=== PATIENT | male | born 1975 | race Caucasian/White ===

== ENCOUNTER 2022-07-15 10:50 | Emergency (ER) | payer MEDICAID, SELFPAY ==
[2022-07-15 10:55] VITALS: BP 121/84; PULSE 78; RESP 18; TEMP 36.7; O2SAT 98; BMI 31.4
--- NOTE | 2022-07-15 11:10 | ED_ITS ---
HPI - Weakness General: Chief complaint: Weakness Stated complaint: weak,hands/feet numb,headache Time Seen by Provider: 07/15/22 11:08 History of Present Illness: Mr. Moore is a 46-year-old gentleman with history of asthma presenting to the emergency department due to generalized illness. He reports being at his baseline health past few days and about 6 AM he felt weak and shaky. He felt like this may be due to blood sugar getting low and had some candy which mildly improved symptoms but he feels generally weak still. No focality or worsening of 1 side of his body. Bilateral hand and feet tingling. Does endorse mild headache. Intensity symptoms is mild to moderate. Course has persisted. No other specific changes in health, exacerbating, or alleviating factors identified. Onset (ago): hour(s) Duration: constant Location: generalized Migration: none Severity: moderate Quality: tingling Relieving factors: none Exacerbating factors: none Associated symptoms: Reports other Review of Systems General: Reports: 10 or more systems reviewed and unremarkable except in HPI and below PFSH ED PFSH: Medical History Asthma Surgical History History of hernia repair Physical Exam Const: COMMON NORMALS: alert GENERAL APPEARANCE: cooperative and well developed HENMT: COMMON NORMALS: normocephalic and atraumatic HEAD & SCALP: normocephalic and atraumatic Eye: COMMON NORMALS: conjunctivae normal CONJUNCTIVA: Yes conjunctivae normal SCLERA: sclerae normal Neck/C-Spine: COMMON NORMALS: supple GENERAL: Yes trachea midline Resp: COMMON NORMALS: clear to auscultation bilaterally EFFORT & INSPECTION: Yes able to speak in complete sentences AUSCULTATION: clear to auscultation bilaterally Cardio: COMMON NORMALS: regular rate and regular rhythm RATE: regular rate RHYTHM: regular rhythm GI: COMMON NORMALS: Soft to palpation PALPATION: Yes Soft to palpation and No Tenderness to palpation present (GI) Extremity: GENERAL: Yes normal exam except as noted and No edema Neuro: COMMON NORMALS: moves all extremities SENSORIUM/ORIENTATION: Yes alert and No Orientation impaired Psych: COMMON NORMALS: mental status grossly normal and Normal thought process present THOUGHT PROCESS: Normal thought process present Course Vital Signs: Vital signs: Vital Signs Temperature 98.1 F 07/15/22 10:55 Pulse Rate 85 07/15/22 13:41 Respiratory Rate 16 07/15/22 13:41 Blood Pressure 115/83 07/15/22 13:41 Pulse Oximetry 96 07/15/22 13:41 MDM - Weakness Medical Decision Making 46-year-old gentleman presenting with episode of profound weakness that is mildly improved but still has generalized weakness. He has a nonfocal neurologic exam and is nontoxic in appearance. Exam otherwise as above. EKG notable for sinus rhythm, normal intervals and axis, no STEMI. Labs with no leukocytosis, normal hemoglobin and platelet count. Metabolic panel without derangement, normal glucose level. No evidence of urinary tract infection, perhaps mild dehydration present. Negative rapid viral studies. Chest x-ray with no lobar consolidation or pneumothorax. Patient improved with fluid bolus. Most likely etiology of patient's symptoms is unclear, dehydration and generalized weakness which may be viral in nature. The results of ED evaluation were discussed with the patient including p rescriptions and/or symptomatic cares (if applicable) including appropriate and responsible use, followup plan, and return precautions. The patient verbalized understanding and felt safe for discharge. Medical Records I reviewed the patient's medical records. Lab Data I reviewed the patient's lab results. 07/15/22 11:20 07/15/22 11:20 Radiology Impressions Chest X-Ray 07/15/22 11:14 IMPRESSION: Chronic appearing interstitial thickening. May be related to respiratory bronchiolitis. No pneumonia. Laboratory Results WBC 8.5 10^3/uL (4.0-10.0) 07/15/22 11:20 RBC 5.09 10^6/uL (4.1-5.3) 07/15/22 11:20 Hgb 15.8 g/dL (11.7-16.6) 07/15/22 11:20 Hct 47.9 % (42.0-52.0) 07/15/22 11:20 MCV 94.1 fl (80-94) H 07/15/22 11:20 MCH 31.0 pg (28.0-34.0) 07/15/22 11:20 MCHC 33.0 g/dL (30.0-36.0) 07/15/22 11:20 RDW 12.5 % (12.1-15.1) 07/15/22 11:20 Plt Count 198 10^3/cmm (130-400) 07/15/22 11:20 MPV 11.0 fL (7.4-10.4) H 07/15/22 11:20 Neut % (Auto) 63.6 % 07/15/22 11:20 Lymph % (Auto) 30.1 % 07/15/22 11:20 Mcculloch % (Auto) 4.4 % 07/15/22 11:20 Eos % (Auto) 1.2 % 07/15/22 11:20 Baso % (Auto) 0.5 % 07/15/22 11:20 Neut # (Auto) 5.38 10^3/uL (1.8-7.7) 07/15/22 11:20 Lymph # (Auto) 2.5 10^3/uL (0.8-4.8) 07/15/22 11:20 Mcculloch # (Auto) 0.4 10^3/uL (0.2-0.9) 07/15/22 11:20 Eos # (Auto) 0.1 10^3/uL (0.0-0.8) 07/15/22 11:20 Baso # (Auto) 0.0 10^3/uL (0.0-0.1) 07/15/22 11:20 Nucleated RBC % (auto) 0 % 07/15/22 11:20 Nucleated RBCs # 0.0 /100WBC 07/15/22 11:20 Sodium 139 mmol/L (136-145) 07/15/22 11:20 Potassium 4.1 mmol/L (3.5-5.1) 07/15/22 11:20 Chloride 102 mmol/L (98-107) 07/15/22 11:20 Carbon Dioxide 25 mmol/L (22-29) 07/15/22 11:20 Anion Gap 16.1 (5-19) 07/15/22 11:20 BUN 17 mg/dL (6-20) 07/15/22 11:20 Creatinine 1.0 mg/dL (0.7-1.2) 07/15/22 11:20 GFR Calculation 80.1 mL/min (90-130) L 07/15/22 11:20 Glucose 88 mg/dL (65-115) 07/15/22 11:20 Calculated Osmolality 289 mOsm/kg (285-295) 07/15/22 11:20 Calcium 9.0 mg/dL (8.5-10.5) 07/15/22 11:20 Total Bilirubin 0.6 mg/dL (0.15-1.2) 07/15/22 11:20 AST 17 U/L (0-40) 07/15/22 11:20 ALT 17 U/L (0-41) 07/15/22 11:20 Alkaline Phosphatase 81 U/L (40-130) 07/15/22 11:20 Total Protein 7.3 g/dL (6.6-8.7) 07/15/22 11:20 Albumin 4.6 g/dL (3.5-5.2) 07/15/22 11:20 Globulin 2.7 g/dL (1.3-4.6) 07/15/22 11:20 TSH 1.04 uIU/mL (0.27-4.20) 07/15/22 11:20 Urine Color Yellow (Yellow) 07/15/22 12:44 Urine Appearance Clear (CLEAR) 07/15/22 12:44 Urine pH 5 (5-7) 07/15/22 12:44 Ur Specific Morrow 1.020 (1.005-1.030) 07/15/22 12:44 Urine Protein Neg (Negative) 07/15/22 12:44 Urine Glucose (UA) Norm (Normal) 07/15/22 12:44 Urine Ketones 1+ (Negative) H 07/15/22 12:44 Urine Blood Neg (Negative) 07/15/22 12:44 Urine Nitrate Negative (Negative) 07/15/22 12:44 Urine Bilirubin Neg (Negative) 07/15/22 12:44 Urine Urobilinogen Norm mg/dL (Negative) 07/15/22 12:44 Ur Leukocyte Esterase Negative (Negative) 07/15/22 12:44 Influenza Type A Ag negative (Negative) 07/15/22 11:33 Influenza Type B Ag negative (Negative) 07/15/22 11:33 SARS-CoV-2 Ag (Rapid) negative (Negative) 07/15/22 11:33 Discharge Plan Discharge Patient Disposition: Home Clinical Impression: Malaise and fatigue, Paresthesia Condition: Stable Prescriptions: New albuterol sulfate 90 mcg/actuation HFA aerosol inhaler 2 inh inhalation Q4H PRN (Reason: shortness of breath or wheezing) Qty: 8.5 2RF No Action Fish Oil Concentrate 1,000 mg Capsule 1,000 mg PO DAILY Aspir-Low 81 mg Tablet,Delayed Release (Dr/Ec) 81 mg PO DAILY melodie extract 250 mg Capsule 250 mg PO DAILY vitamin B complex Tablet 1 tab PO DAILY Excedrin Migraine 250-250-65 mg Tablet 2 tab PO BID PRN (Reason: Migraine Headache) turmeric 400 mg Capsule 400 mg PO DAILY alpha lipoic acid 600 mg Tablet 600 mg PO DAILY Lions Celestino Capsules 1 cap PO DAILY Discharge Orders: Discharge ED (Routine); Ordered 07/15/22 Ordered By: Preet Krause Discharge Diet: Usual diet Discharge Activity: Increase activity as tolerated Patient Instructions: Paresthesia (ED), Viral Syndrome (ED), Weakness (ED) Activity Restrictions/Additional Instructions: Thank you for visiting the emergency department. You were seen and evaluated for generalized illness. The exact cause of your symptoms is unclear though may be viral in nature. Given ED evaluation I do not believe that you need hospitalization at this time. Please ensure that you are staying hydrated and resting. You may use [id number] medications such as acetaminophen and ibuprofen for pain however please do not exceed the daily recommended dosage as listed on the packaging and please keep in mind that many namebrand medications contain the same active ingredients. Please avoid these medications if previously instructed to do so by another physician due to other underlying medical condition. I will message case management for follow-up with a primary care provider. Return to the emergency department for uncontrolled symptoms, any new neurologic symptoms, or anything else that you are concerned about a feel needs emergency department evaluation. Stand Alone Forms: Work/School Release Coding Level of Care Code ED Mirror Installer for Nasima Fwnile Exam Comprehensive
--- NOTE | 2022-07-15 11:14 | XR_ITS ---
WS: [id number] PORTABLE CHEST HISTORY: presyncope COMPARISON: None available. Hyperexpanded lungs with mild coarse echotexture. No consolidations. No mass or nodule. No pleural ef fusion or pneumothorax. Cardiac size: Normal. Mediastinum/Aorta: Normal mediastinum. No osseous abnormality seen. XR/XR chest 1V portable [id number] IMPRESSION: Chronic appearing interstitial thickening. May be related to respiratory bronch iolitis. No pneumonia.
--- NOTE | 2022-07-15 11:27 | ECG_ITS ---
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 Measurements Intervals [place] Rate: 71 P: 71 [place]: 162 QRS: -4 QRSD: 92 T: 59 QT: 377 QTc: 411 Interpretive Statements SINUS RHYTHM No previous ECG available for comparison Electronically Signed On 07-15-2022 14:38:01 PEN MAKER by Adolfo Marinelli M.D. [id number]
[2022-07-15] MEDS: sodium chloride 0.9% 1,000 ML 999 ML IV (11:33)
[2022-07-15 11:34] LABS: Basophils % 0.5 %; Eosinophils # 0.1 10^3/uL (0.0-0.8); Eosinophils % 1.2 %; Hematocrit 47.9 % (42.0-52.0); Hemoglobin 15.8 g/dL (11.7-16.6); Lymphocytes # 2.5 10^3/uL (0.8-4.8); Lymphocytes % 30.1 %; Mean Corpuscular Volume 94.1 fl (80-94); Monocytes # 0.4 10^3/uL (0.2-0.9); Monocytes % 4.4 %; Neutrophils # 5.38 10^3/uL (1.8-7.7); Neutrophils % 63.6 %; Nucleated Red Blood Cells % 0 %; Platelet Count 198 10^3/cmm (130-400); Red Blood Count 5.09 10^6/uL (4.1-5.3); Red Cell Distribution Width 12.5 % (12.1-15.1); White Blood Count 8.5 10^3/uL (4.0-10.0)
[2022-07-15 12:03] LABS: Alanine Aminotransferase 17 U/L (0-41); Albumin Level 4.6 g/dL (3.5-5.2); Alkaline Phosphatase 81 U/L (40-130); Anion Gap 16.1 (5-19); Aspartate Amino Transferase 17 U/L (0-40); Blood Urea Nitrogen 17 mg/dL (6-20); Carbon Dioxide 25 mmol/L (22-29); Chloride 102 mmol/L (98-107); Globulin 2.7 g/dL (1.3-4.6); Glomerular Filtration Rate 80.1 mL/min (90-130); Glucose 88 mg/dL (65-115); Osmolality Calculated 289 mOsm/kg (285-295); Potassium 4.1 mmol/L (3.5-5.1); Sodium 139 mmol/L (136-145); Thyroid Stimulating Hormone 1.04 uIU/mL (0.27-4.20); Total Bilirubin 0.6 mg/dL (0.15-1.2); Total Protein 7.3 g/dL (6.6-8.7)
[2022-07-15 12:05] LABS: Influenza A by IFA negative (Negative); Influenza B by IFA negative (Negative)
[2022-07-15 12:06] LABS: SARS Covid-2 Antigen negative (Negative)
[2022-07-15 13:19] LABS: Add Urine Microscopic? NO; Charge for UA Resulting for Rev
[2022-07-15 13:27] LABS: Glucose Urine UA Norm (Normal); Protein Urine Neg (Negative); Urine Appearance Clear (CLEAR); Urine Color Yellow (Yellow); pH Urine 5 (5-7)
[2022-07-15 13:28] LABS: Bilirubin Urine Neg (Negative); Blood Urine Neg (Negative); Ketones Urine 1+ (Negative); Leukocyte Esterase Urine Negative (Negative); Nitrate Urine Negative (Negative); Urobilinogen Urine Norm (Negative)
[2022-07-15 13:41] VITALS: BP 115/83; PULSE 85; RESP 16; O2SAT 96
== END 2022-07-15 13:42 | disposition home or self-care (01) ==
PROVIDERS: Emergency Provider Emergency Medicine
DX: R20.2 Paresthesia of skin (principal); R53.81 Other malaise; R53.83 Other fatigue; Z79.82 Long term (current) use of aspirin; Z20.822 Contact with and (suspected) exposure to COVID-19
CPT/HCPCS: 71045; 80053; 81003; 84443; 85025; 87426; 87804; 93005; 99285; J7030

== ENCOUNTER 2022-09-13 18:53 | Emergency (ER) | payer MEDICAID, SELFPAY ==
[2022-09-13] VITALS (7 sets, daily range): BP systolic 128–159; BP diastolic 76–104; PULSE 22–102; RESP 18–93; TEMP 36.4; O2SAT 94–97; BMI 30.8
--- NOTE | 2022-09-13 18:55 | CTR_ITS ---
PROCEDURE INFORMATION: Exam: CT Head Without Contrast Exam date and time: 09/13/2022 6:56 PM Age: 47 years old Clinical indication: Stroke-like symptoms; Altered mental status/memory loss and headache and speech disturbance; Additional info: Symptoms of acute stroke, follows commands but will not speak. TECHNIQUE: Imaging protocol: Computed tomography of the head without contrast. Radiation optimization: All CT scans at this facility use at least one of these dose optimization techniques: automated exposure control; mA and/or kV adjustment per patient size (includes targeted exams where dose is matched to clinical indication); or iterative reconstruction. Other technique: STROKE PROTOCOL was implemented. REPORTING DATA: Count of CT and Cardiac NM exams in prior 12 months: This patient has received 0 known CTs and 0 known cardiac nuclear medicine studies in the 12 months prior to the current study. COMPARISON: No relevant prior studies available. RADIATION DOSE METRICS: Total DLP (mGy-cm): 1086.58 FINDINGS: Brain: Normal. No hemorrhage. Unremarkable white matter. No mass effect. Cerebral ventricles: No ventriculomegaly. Paranasal sinuses: Visualized sinuses are unremarkable. No fluid levels. Mastoid air cells: Visualized mastoid air cells are well aerated. Bones/joints: Unremarkable. No acute fracture. Soft tissues: Unremarkable. CT/CT head thrombolytic [id number] IMPRESSION: No acute intracranial abnormality. ASSESSMENT: ASPECTS ([place] Stroke Program Early CT Score) is 10.
--- NOTE | 2022-09-13 18:59 | XRR_ITS ---
PROCEDURE INFORMATION: Exam: XR Chest Exam date and time: 09/13/2022 7:15 PM Age: 47 years old Clinical indication: Angina and other: Stroke alert; Additional info: Cp TECHNIQUE: Imaging protocol: Radiologic exam of the chest. Views: 1 view. COMPARISON: CR XR chest 1V portable [id number] 07/15/2022 11:31 AM FINDINGS: Lungs: Unremarkable. No consolidation. Pleural spaces: Unremarkable. No pleural effusion. No pneumothorax. Heart/Mediastinum: Unremarkable. No cardiomegaly. Bones/joints: Unremarkable. XR/XR chest 1V portable [id number] IMPRESSION: No acute findings.
--- NOTE | 2022-09-13 19:06 | ECG_ITS ---
[facility] Test Date: 2022-09-13 Pat Name: Silas Moore Department: Room: Gender: Male Manager Customs: : 1975 Requested By: Natividad Farias Order Number: [id number] Yadi MD: Kellen Chaudhary M.D. Measurements Intervals [place] Rate: 85 P: 71 [place]: 173 QRS: 13 QRSD: 88 T: 55 QT: 331 QTc: 395 Interpretive Statements SINUS RHYTHM POSSIBLE LEFT ATRIAL ENLARGEMENT [-0.1mV P-WAVE IN V1/V2] SEPTAL MYOCARDIAL INFARCTION , OF INDETERMINATE AGE [40+ ms Q WAVE IN V1/V2] Compared to ECG 07/15/2022 11:27:01 Myocardial infarct finding now present Electronically Signed On 09-13-2022 23:12:47 CDT by Kellen Chaudhary M.D. [id number]
[2022-09-13 19:09] LABS: Glucose Point of Care 109 mg/dL (70-110)
--- NOTE | 2022-09-13 19:14 | ED_ITS ---
HPI - Altered Mental Status General: Chief Complaint: Altered Mental Status Stated Complaint: STROKE ALERT Time Seen by Provider: 09/13/22 18:55 Source: patient and EMS Mode of arrival: EMS Limitations: no limitations History of Present Illness: 47-year-old male that at 1800 tonight got into a verbal altercation with his states he became angry EMS was called because he had an unresponsive event supposedly hit his head per EMS he points to his head complaining of headache and chest pain he does respond to questions but is unable to talk and EMS states he has not been able to talk since the event. He is able to write things down on a paper he is able to move all extremities has no facial droop Associated symptoms: Deny depression Review of Systems Const: Denies: fever(s), chills, body aches or change in appetite Eyes: Denies: blurry vision or eye discomfort ENMT: Denies: throat pain or dental pain Card: Reports: chest pain Resp: Denies: dyspnea GI: Denies: abdominal pain, nausea, vomiting or diarrhea : Denies: dysuria Musc: Denies: neck pain or back pain Skin/Breast: Denies: rash Neuro: Reports: headache(s) Psych: Denies: depression Josh/Lymph: Denies: easy bruising All/Imm: Denies: urticaria PFSH ED PFSH: Medical History Asthma Psychiatric care Surgical History History of hernia repair Social History (Updated 09/13/22 @ 19:16 by Natividad Farias MD) Substance/Drug Use: unknown Physical Exam Const: COMMON NORMALS: average body habitus and patient oriented x3 HENMT: COMMON NORMALS: normocephalic and atraumatic HEAD & SCALP: normocephalic and atraumatic Eye: COMMON NORMALS: Equal, round and reactive pupils present and EOMs intact bilaterally PUPIL: Yes Equal, round and reactive pupils present Neck/C-Spine: COMMON NORMALS: full ROM and no lymphadenopathy Chest: COMMONS NORMALS: normal inspection of the chest and normal palpation of entire chest wall Resp: COMMON NORMALS: normal respiratory effort and clear to auscultation bilaterally AUSCULTATION: clear to auscultation bilaterally Cardio: COMMON NORMALS: regular rate and regular rhythm RATE: regular rate RHYTHM: regular rhythm GI: COMMON NORMALS: Normal to inspection, nondistended, normoactive bowel sounds present, Soft to palpation and non-tender PALPATION: Yes Soft to palpation Back/Pelvis: COMMON NORMALS: thoracic and lumbar spine normal to inspection Extremity: COMMON NORMALS: normal to inspection Neuro: COMMON NORMALS: patient oriented x3 CRANIAL NERVES: Yes CN normal except as noted SPEECH: speech abnormal MOTOR EXAM: 5/5 motor strength present throughout Psych: COMMON NORMALS: cooperative Skin: COMMON NORMALS: no rashes or lesions noted GENERAL SKIN EXAM: no rashes or lesions noted Course Vital Signs: Vital signs: Vital Signs Temperature 97.5 F L 09/13/22 19:10 Pulse Rate 93 09/13/22 21:09 Respiratory Rate 18 09/13/22 21:09 Blood Pressure 159/97 09/13/22 21:09 Pulse Oximetry 97 09/13/22 21:09 Oxygen Delivery Me thod 09/13/22 20:00 MDM - Altered Mental Status Medical Decision Making Patient presents here with headache along with chest pain he also has not been able to speak patient was seen by neurologist Dr. Dempsey who did not recommend tPA but did recommend admission I did have patient admitted he o riginally agreed to admission but then he changed his mind and wanted to leave I did speak to them informed him that we still need to admit him since he was unable to talk and had a headache and likely need MRI in the morning he refused he has medical decision made capacity and signed out AMA. Lab Data 09/13/22 18:30 09/13/22 18:[address] 09/13/22 18:55 IMPRESSION: No acute intracranial abnormality. ASSESSMENT: ASPECTS ([place] Stroke Program Early CT Score) is 10. Chest X-Ray 09/13/22 18:59 IMPRESSION: No acute findings. Laboratory Results WBC 13.4 10^3/uL (4.0-10.0) H 09/13/22 18:30 RBC 5.26 10^6/uL (4.1-5.3) 09/13/22 18:30 Hgb 16.5 g/dL (11.7-16.6) 09/13/22 18:30 Hct 48.7 % (42.0-52.0) 09/13/22 18:30 MCV 92.6 fl (80-94) 09/13/22 18:30 MCH 31.4 pg (28.0-34.0) 09/13/22 18: MCHC 33.9 g/dL (30.0-36.0) 09/13/22 18:30 RDW 12.4 % (12.1-15.1) 09/13/22 18: Plt Count 210 10^3/cmm (130-400) 09/13/22 18:30 MPV 11.5 fL (7.4-10.4) H 09/13/22 18:30 Neut % (Auto) 67.4 % 09/13/22 18:30 Lymph % (Auto) 25.9 % 09/13/22 18:30 Bacon % (Auto) 5.3 % 09/13/22 18:30 Eos % (Auto) 0.7 % 09/13/22 18: Baso % (Auto) 0.4 % 09/13/22 18: Neut # (Auto) 9.01 10^3/uL (1.8-7.7) H 09/13/22 18:30 Lymph # (Auto) 3.5 10^3/uL (0.8-4.8) 09/13/22 18:30 Bacon # (Auto) 0.7 10^3/uL (0.2-0.9) 09/13/22 18:30 Eos # (Auto) 0.1 10^3/uL (0.0-0.8) 09/13/22 18: Baso # (Auto) 0.1 10^3/uL (0.0-0.1) 09/13/22 18: Nucleated RBC % (auto) 0 % 09/13/22 18: Nucleated RBCs # 0.0 /100WBC 09/13/22 18:30 PT 14.00 SECONDS (12.1-14.9) 09/13/22 18:30 INR 1.04 (0.8-1.2) 09/13/22 18:30 APTT 27.2 SECONDS (23.9-36.7) 09/13/22 18:30 Sodium 136 mmol/L (136-145) 09/13/22 18:30 Potassium 3.9 mmol/L (3.5-5.1) 09/13/22 18:30 Chloride 100 mmol/L (98-107) 09/13/22 18:30 Carbon Dioxide 21 mmol/L (22-29) L 09/13/22 18:30 Anion Gap 18.9 (5-19) 09/13/22 18:30 BUN 16 mg/dL (6-20) 09/13/22 18:30 Creatinine 1.1 mg/dL (0.7-1.2) 09/13/22 18:30 GFR Calculation 71.4 mL/min (90-130) L 09/13/22 18:30 Glucose 122 mg/dL (65-115) H 09/13/22 18:30 POC Glucose 109 mg/dL (70-110) 09/13/22 19:03 Calculated Osmolality 284 mOsm/kg (285-295) L 09/13/22 18:30 Calcium 9.0 mg/dL (8.5-10.5) 09/13/22 18:30 Total Bilirubin 0.7 mg/dL (0.15-1.2) 09/13/22 18:30 AST 13 U/L (0-40) 09/13/22 18:30 ALT 15 U/L (0-41) 09/13/22 18:30 Alkaline Phosphatase 77 U/L (40-130) 09/13/22 18:30 Troponin T Baseline 6 ng/L (0-15) 09/13/22 18:30 Troponin T 120 Minute Cancelled 09/13/22 20:08 Delta Troponin T Cancelled 09/13/22 20:08 Total Protein 7.5 g/dL (6.6-8.7) 09/13/22 18:30 Albumin 4.4 g/dL (3.5-5.2) 09/13/22 18:30 Globulin 3.1 g/dL (1.3-4.6) 09/13/22 18:30 EKG Data EKG 1: I personally reviewed and interpreted this EKG as follows: EKG interpretation date: 09/13/22 EKG interpretation time: 19:06 Interpretation: nsr hr [address] or t wave abnormalities qrs 88 qtc 374 Discharge Plan Discharge Patient Disposition: Left Against Medical Advice Clinical Impression: Headache, Chest pain, Syncope, Cannot speak Condition: Stable Prescriptions: No Action Fish Oil Concentrate 1,000 mg Capsule 1,000 mg PO DAILY Aspir-Low 81 mg Tablet,Delayed Release (Dr/Ec) 81 mg PO DAILY melodie extract 250 mg Capsule 250 mg PO DAILY vitamin B complex Tablet 1 tab PO DAILY Excedrin Migraine 250-250-65 mg Tablet 2 tab PO BID PRN (Reason: Migraine Headache) turmeric 400 mg Capsule 400 mg PO DAILY alpha lipoic acid 600 mg Tablet 600 mg PO DAILY Lions Celestino Capsules 1 cap PO DAILY albuterol sulfate 90 mcg/actuation HFA aerosol inhaler 2 inh inhalation Q4H PRN (Reason: shortness of breath or wheezing) Qty: 8.5 2RF Coding Level of Care Code ED Cable Rigger for Nasima Diaz
[2022-09-13] MEDS: ketorolac 30 mg/mL INJ 15 MG IVP (19:16)
[2022-09-13 19:23] LABS: Basophils # 0.1 10^3/uL (0.0-0.1); Basophils % 0.4 %; Eosinophils # 0.1 10^3/uL (0.0-0.8); Eosinophils % 0.7 %; Hematocrit 48.7 % (42.0-52.0); Hemoglobin 16.5 g/dL (11.7-16.6); Lymphocytes # 3.5 10^3/uL (0.8-4.8); Lymphocytes % 25.9 %; Mean Corpuscular HGB Conc 33.9 g/dL (30.0-36.0); Mean Corpuscular Hemoglobin 31.4 pg (28.0-34.0); Mean Corpuscular Volume 92.6 fl (80-94); Mean Platelet Volume 11.5 fL (7.4-10.4); Monocytes # 0.7 10^3/uL (0.2-0.9); Monocytes % 5.3 %; Neutrophils # 9.01 10^3/uL (1.8-7.7); Neutrophils % 67.4 %; Nucleated Red Blood Cells % 0 %; Platelet Count 210 10^3/cmm (130-400); Red Blood Count 5.26 10^6/uL (4.1-5.3); Red Cell Distribution Width 12.4 % (12.1-15.1); White Blood Count 13.4 10^3/uL (4.0-10.0)
[2022-09-13 19:37] LABS: INR 1.04 (0.8-1.2)
[2022-09-13 19:38] LABS: Partial Thromboplastin Time 27.2 SECONDS (23.9-36.7)
[2022-09-13] MEDS: aspirin 81 mg Chew Tablet 324 MG PO (19:42)
[2022-09-13 20:19] LABS: Troponin(5th) Baseline 6 ng/L (0-15)
[2022-09-13 20:21] LABS: Alanine Aminotransferase 15 U/L (0-41); Albumin Level 4.4 g/dL (3.5-5.2); Alkaline Phosphatase 77 U/L (40-130); Anion Gap 18.9 (5-19); Aspartate Amino Transferase 13 U/L (0-40); Blood Urea Nitrogen 16 mg/dL (6-20); Carbon Dioxide 21 mmol/L (22-29); Chloride 100 mmol/L (98-107); Globulin 3.1 g/dL (1.3-4.6); Glomerular Filtration Rate 71.4 mL/min (90-130); Glucose 122 mg/dL (65-115); Osmolality Calculated 284 mOsm/kg (285-295); Potassium 3.9 mmol/L (3.5-5.1); Sodium 136 mmol/L (136-145); Total Bilirubin 0.7 mg/dL (0.15-1.2); Total Protein 7.5 g/dL (6.6-8.7)
[2022-09-13 21:47] LABS: Troponin 5 2HR Delta 0 ABS# (0-10)
--- NOTE | 2022-09-15 17:31 | PM.SAN ---
Stroke Alert Activation ED Arrival Date: 09/13/22 ED Arrival Time: 18:55 ED Physican at Bedside: 18:55 Last Known Normal/at Baseline: < 1 hour ago Other Last Known Well Infomation: Stroke alert was activated by EMS with the report that the patient stopped speaking after he became involved in a verbal altercation with his . There was a question that he might of been unresponsive. Stroke alert was called and I spoke with the nurse who had taken report from EMS. The patient was soon to arrive and I asked to be called as soon as he was seen by Dr. Farias. Dr. Farias called and reported that the patient had some atypical findings, and negative CT of the head and that his neurologic exam was entirely normal except that he would not speak and he was making signs to indicate that he had a headache, pointing to his head. I came to the emergency department and reviewed the patient's CAT scan of the head, which was normal. I reviewed the story with Dr. Farias and then saw the patient and his and 2 children. His reported that they had an argument and around 4:00 in the afternoon that lasted until 5:00 and then he suddenly stopped speaking and would not respond. He was awake and alert and his eyes were open but he would not answer. He did not lose consciousness. He was still unable to speak at the time that I saw the patient but he was able to write sentences on a paper. His reports that he has done this several times in the past but that it never lasted this long. In each case he had a headache and he is complaining of a headache currently. She informs me that the last time he did this he signed out of the hospital AGAINST MEDICAL ADVICE rather than to be admitted. Stroke Alert Activated by: EMS Stroke MD @ Bedside Time: 19:10 NIH stroke score NIHSS: Level Of Consciousness - 1a: 0 Level Of Consciousness Questions - 1b: Neither Correct (He is able to write but not speak) Level Of Consciousness Commands - 1c: Both Correct Best Gaze - 2: Normal Visual Duffy - 3: No Visual Loss Facial Palsy - 4: Normal Motor Arm Right - 5: No Drift Motor Arm Left - 5: No Drift Motor Leg Right - 6: No Drift Motor Leg Left - 6: No Drift Limb Ataxia - 7: Absent Sensory - 8: Normal Best Language - 9: No Aphasia (He has atypical findings.) Dysarthia - 10: Normal Extinction And Inattention - 11: 0 Score: Total Score: 2 Stroke Alert Data/Treatment tPA Contraindication: tPA Contraindication: Treatment not indcated tPA Admin Prior to Arrival: No Other Patient & Family Education: I discussed the probability that the patient was suffering from migraine rather than a stroke. I discussed functional strokelike symptoms briefly. I recommended admission to the hospital but the patient signed out AGAINST MEDICAL ADVICE. Standardized Stroke Orders Used: No (Because he signed out AMA) Critical Care Time Critical Care Time: 30 - 74 mins A&P Assessment and plan (1) Cannot speak: (2) Migraine headache with aura: He may be having migraine with aura. There was a strong emotional component to his behavior and it was atypical that he could write, make all types of gestures but could not utter sounds. I thought it was in keeping with the probable emotional nature of his disorder that he did not wish further medical evaluation. Coding Level of Care Code Acute Code for Chg Fwd Diagnoses Cannot speak R49.1 Migraine headache with aura G43.109
--- NOTE | 2022-09-16 13:23 | DCPLANNER ---
working manager called patient due to no primary care physician - patient stated that he sees Dr. Schwab at [facility] [place].
== END 2022-09-13 21:10 | disposition left against medical advice (07) ==
PROVIDERS: Emergency Provider Emergency Medicine; PCP Family Medicine
DX: R55 Syncope and collapse (principal); R51.9 Headache, unspecified; R07.9 Chest pain, unspecified; Z79.82 Long term (current) use of aspirin; Z53.21 Procedure and treatment not carried out due to patient leaving prior to being seen by health care provider; R47.89 Other speech disturbances
CPT/HCPCS: 36416; 70450; 71045; 80053; 82962; 84484; 85025; 85610; 85730; 93005; 96374; 99285; J1885